=== PATIENT | male | born 1970 | race Caucasian/White ===

== ENCOUNTER 2021-07-26 10:43 | Observation (INO) | payer SELFPAY ==
[~2021-07-26] VITALS: Ht 175.3 cm; Wt 84.1 kg
--- NOTE | 2021-07-26 11:13 | NUR ---
kevin hinojosa at bedside.
[2021-07-26 11:22] LABS: BASOPHILS # (AUTO) 0.1 X10'3 (0-0.2); BASOPHILS % (AUTO) 0.4 % (0-1); EOSINOPHILS # (AUTO) 0.1 X10'3 (0-0.9); EOSINOPHILS % (AUTO) 0.8 % (0-6); HEMATOCRIT 45.9 % (42.0-52.0); HEMOGLOBIN 15.4 g/dl (14.0-17.9); LYMPHOCYTES % (AUTO) 31.9 % (21-51); MEAN CORPUSCULAR HEMOGLOBIN 29.4 PG (27.0-31.0); MEAN CORPUSCULAR HGB CONC 33.5 g/dL (33.0-36.5); MEAN CORPUSCULAR VOLUME 87.8 FL (78-98); MONOCYTES % (AUTO) 7.9 % (2-12); NEUTROPHILS # (AUTO) 7.4 X10'3 (1.8-7.7); PLATELET COUNT 272 X10'3 (140-440); RED BLOOD COUNT 5.23 X10'6 (4.70-6.10); RED CELL DISTRIBUTION WIDTH 13.6 % (11.5-14.5); WHITE BLOOD COUNT 12.5 X10'3 (4.5-11.0)
[2021-07-26 11:36] LABS: ALANINE AMINOTRANSFERASE 81 U/L (12-78); ALBUMIN 3.6 G/DL (3.4-5.0); ALBUMIN/GLOBULIN RATIO 1.1 (1.1-1.5); ALKALINE PHOSPHATASE 54 IU/L (46-116); ANION GAP 14 (8-16); ASPARTATE AMINO TRANSFERASE 30 U/L (10-37); BILIRUBIN,TOTAL 1.3 MG/DL (0.1-1.0); BLOOD UREA NITROGEN 15 MG/DL (7-18); BUN/CREATININE RATIO 17.2 (5.4-32.0); CALCIUM 8.4 MG/DL (8.5-10.1); CHLORIDE 106 MMOL/L (99-107); CREATININE 0.87 MG/DL (0.60-1.10); GLUCOSE 132 MG/DL (70-104); POTASSIUM 3.5 MMOL/L (3.5-5.1); SODIUM 143 MMOL/L (135-145); TOTAL CARBON DIOXIDE 23.4 MMOL/L (24-32); eGFR > 90 ML/MIN
[2021-07-26] MEDS ORDERED: normal saline 1000ML IV soln IVB ONE (12:30)
[2021-07-26 13:01] LABS: URINE AMPHETAMINE SCREEN NEGATIVE (Neg); URINE BARBITUATE SCREEN NEGATIVE (Neg); URINE BENZODIAZEPINES SCREEN NEGATIVE (Neg); URINE CANNABINOID SCREEN POSITIVE (Neg); URINE COCAINE SCREEN NEGATIVE (Neg); URINE METHADONE SCREEN NEGATIVE (Neg); URINE OPIATE SCREEN NEGATIVE (Neg); URINE PHENCYCLIDINE SCREEN NEGATIVE (Neg)
[2021-07-26] MEDS ORDERED: ondansetron/PF 4mg/2ml inj IV PRN (15:00)
[2021-07-26] MEDS ORDERED: magnesium hydroxide 30ml (MOM) UD suspension PO PRN (15:00)
[2021-07-26] MEDS ORDERED: mag hydrox/Alum hydrox/simeth 30ml oral suspension PO PRN (15:00)
[2021-07-26] MEDS ORDERED: potassium Cl 20 mEq SR tablet PO PRN ×2 (15:00)
[2021-07-26] MEDS ORDERED: magnesium 4gm in 100ml NS 100 ML IV PRN (15:00)
[2021-07-26] MEDS ORDERED: magnesium Cl slow-release 64mg tablet PO PRN (15:00)
[2021-07-26] MEDS ORDERED: potassium CL 10mEq/100ml bag 100 ML IV PRN (15:00)
[2021-07-26] MEDS ORDERED: magnesium 2GM in 50ml NS 50 ML IV PRN (15:00)
[2021-07-26] MEDS: normal saline 1000ml 1,000 ML IV SCH (15:41)
[2021-07-26] MEDS ORDERED: NO HOME MEDS (16:05)
--- NOTE | 2021-07-26 17:29 | NUR ---
attempted to call report to [facility] but no assigned RN yet.ED CN aware.
--- NOTE | 2021-07-26 19:08 | NUR ---
patient admitted to the floor at 1810 AOX4 no complications noted
--- NOTE | 2021-07-26 19:10 | NUR ---
report received from the ED RN Melanie at 1750 patient going to room 3012/B
[2021-07-26] MEDS: docusate sod 100mg capsule PO SCH (19:48)
[2021-07-26] MEDS: acetaminophen 325mg tablet PO PRN (19:49)
[2021-07-26 20:00] VITALS: BP_SYST 117; BP_SYST 126; BP_DIAS 71; BP_DIAS 78
[2021-07-26] MEDS: K and/or MAG REPLACEMENT MC SCH (20:00)
[2021-07-26 20:01] VITALS: BP 126/88
[2021-07-26 21:30] VITALS: BP 126/78
[2021-07-26 22:00] VITALS: BP 113/71
[2021-07-26] MEDS ORDERED: morphine 2 MG/ML inj. syringe IV ONE (22:30)
[2021-07-27] VITALS (9 sets, daily range): BP systolic 111–132; BP diastolic 73–97
[2021-07-27] MEDS: normal saline 1000ml 1,000 ML IV SCH ×5 (01:00→22:09)
[2021-07-27] MEDS: acetaminophen 325mg tablet PO PRN (03:37)
[2021-07-27 06:37] LABS: ALBUMIN 3.2 G/DL (3.4-5.0); ANION GAP 10 (8-16); BLOOD UREA NITROGEN 11 MG/DL (7-18); BUN/CREATININE RATIO 15.5 (5.4-32.0); CALCIUM 8.3 MG/DL (8.5-10.1); CHLORIDE 108 MMOL/L (99-107); CREATININE 0.71 MG/DL (0.60-1.10); GLUCOSE 90 MG/DL (70-104); POTASSIUM 3.9 MMOL/L (3.5-5.1); SODIUM 142 MMOL/L (135-145); TOTAL CARBON DIOXIDE 24.4 MMOL/L (24-32); eGFR > 90 ML/MIN
[2021-07-27 06:39] LABS: BASOPHILS % (AUTO) 0.4 % (0-1); EOSINOPHILS # (AUTO) 0.1 X10'3 (0-0.9); EOSINOPHILS % (AUTO) 1.3 % (0-6); HEMATOCRIT 42.8 % (42.0-52.0); HEMOGLOBIN 14.9 g/dl (14.0-17.9); LYMPHOCYTES # (AUTO) 1.9 X10'3 (1.1-4.8); LYMPHOCYTES % (AUTO) 22.8 % (21-51); MEAN CORPUSCULAR HEMOGLOBIN 30.5 PG (27.0-31.0); MEAN CORPUSCULAR HGB CONC 34.8 g/dL (33.0-36.5); MEAN CORPUSCULAR VOLUME 87.7 FL (78-98); MEAN PLATELET VOLUME 7.9 FL (7.4-10.4); MONOCYTES # (AUTO) 0.6 X10'3 (0-0.9); NEUTROPHILS # (AUTO) 5.5 X10'3 (1.8-7.7); NEUTROPHILS % (AUTO) 67.5 % (42-75); PLATELET COUNT 200 X10'3 (140-440); RED BLOOD COUNT 4.88 X10'6 (4.70-6.10); RED CELL DISTRIBUTION WIDTH 13.7 % (11.5-14.5); WHITE BLOOD COUNT 8.1 X10'3 (4.5-11.0)
[2021-07-27] MEDS: K and/or MAG REPLACEMENT MC SCH ×2 (08:00→20:00)
[2021-07-27] MEDS: docusate sod 100mg capsule PO SCH ×2 (08:00→21:21)
[2021-07-27] MEDS: enoxaparin 40mg/0.4ml syringe SUBCUT SCH (09:13)
--- NOTE | 2021-07-27 15:45 | NUR ---
DR. Migdalia allen regarding patient c/o neck pain, refused to take Tylenol stated it's not helping him with pain. had X1 dose morphine last night was help. and want to know if he's going home today?
--- NOTE | 2021-07-27 16:01 | NUR ---
call back received from Dr. Negron to add ultram 50 mg q6hrs as needed. and EEG need to be done and resulted before discharge.
[2021-07-27] MEDS: traMADol 50MG tablet PO PRN (16:29)
--- NOTE | 2021-07-27 18:45 | NUR ---
Patient in room PCU 3012. I have received report from RN Steph and had the opportunity to ask questions and assume patient care.
[2021-07-28 02:00] VITALS: BP 108/77
[2021-07-28 06:07] LABS: BASOPHILS % (AUTO) 0.5 % (0-1); EOSINOPHILS # (AUTO) 0.1 X10'3 (0-0.9); HEMATOCRIT 46.3 % (42.0-52.0); HEMOGLOBIN 15.7 g/dl (14.0-17.9); LYMPHOCYTES # (AUTO) 1.7 X10'3 (1.1-4.8); LYMPHOCYTES % (AUTO) 23.8 % (21-51); MEAN CORPUSCULAR HEMOGLOBIN 29.6 PG (27.0-31.0); MEAN CORPUSCULAR VOLUME 87.1 FL (78-98); MEAN PLATELET VOLUME 7.7 FL (7.4-10.4); MONOCYTES # (AUTO) 0.6 X10'3 (0-0.9); MONOCYTES % (AUTO) 8.9 % (2-12); NEUTROPHILS # (AUTO) 4.7 X10'3 (1.8-7.7); NEUTROPHILS % (AUTO) 64.8 % (42-75); PLATELET COUNT 219 X10'3 (140-440); RED BLOOD COUNT 5.31 X10'6 (4.70-6.10); RED CELL DISTRIBUTION WIDTH 13.7 % (11.5-14.5); WHITE BLOOD COUNT 7.2 X10'3 (4.5-11.0)
[2021-07-28 06:25] LABS: ALBUMIN 3.3 G/DL (3.4-5.0); ANION GAP 10 (8-16); BLOOD UREA NITROGEN 12 MG/DL (7-18); CALCIUM 8.4 MG/DL (8.5-10.1); CHLORIDE 107 MMOL/L (99-107); CREATININE 0.75 MG/DL (0.60-1.10); GLUCOSE 91 MG/DL (70-104); SODIUM 141 MMOL/L (135-145); TOTAL CARBON DIOXIDE 23.9 MMOL/L (24-32); eGFR > 90 ML/MIN
--- NOTE | 2021-07-28 06:58 | NUR ---
Problems reprioritized. Patient report given, questions answered & plan of care reviewed with MAURICE Toledo.
[2021-07-28 07:06] VITALS: BP 110/81
[2021-07-28] MEDS: K and/or MAG REPLACEMENT MC SCH (07:41)
[2021-07-28] MEDS: docusate sod 100mg capsule PO SCH (07:41)
[2021-07-28] MEDS: enoxaparin 40mg/0.4ml syringe SUBCUT SCH (07:42)
[2021-07-28 11:00] VITALS: BP 132/93
[2021-07-28] MEDS: traMADol 50MG tablet PO PRN (13:04)
== END 2021-07-28 14:20 | disposition home or self-care (01) ==
LOC: ER 10:44 → ED HOLD 15:02 → PCU 3S 18:43
PROVIDERS: ADMIT Family Medicine; ATTEND Family Medicine
DX: R55 Syncope and collapse (principal); G89.29 Other chronic pain; M54.2 Cervicalgia; F12.90 Cannabis use, unspecified, uncomplicated; Z79.899 Other long term (current) drug therapy
CPT/HCPCS: 36415; 70450; 71045; 80048; 80053; 80305; 83735; 83880; 84484; 85025; 93005; 93306; 96361; 96372; 96374; 99285; G0378; J1650; J2270; J7030